=== PATIENT | male | born 1970 | race Two or more races ===

== ENCOUNTER 2016-12-25 15:55 | Emergency (ER) | payer OTHER ==
[2016-12-25 16:16] VITALS: BP 135/65; PULSE 72; RESP 18; TEMP 98.7
--- NOTE | 2016-12-25 16:30 | ED ---
General Adult HPI - General Chief complaint: Recheck/Abnormal Lab/Rx Stated complaint: Ankle Pain Time Seen by Provider: 12/25/16 16:21 Source: patient, RN notes reviewed Mode of arrival: ambulatory Limitations: no limitations - History of Present Illness Initial comments: Patient is a 46-year-old male who presents emergency room today with chief complaint of wanting medication refill. He does admit that he has recently moved back from [place]. States he plans follow-up Dr. Ordoñez. States been on Calypso in the past for chronic ankle pain. Patient states that his medication over the last month. He states he tried anti-inflammatories and also prescription Tylenol with no relief the symptoms. Patient states he is trying to get back into family doctor sometime this coming month. He denies any new injuries or complaints. Patient denies any recent fever, chills, shortness of breath, chest pain, back pain, abdominal pain, nausea or vomiting, numbness or tingling, dysuria or hematuria, constipation or diarrhea, headaches or visual changes, or any other complaints. - Related Data Previous Rx's Medication Instructions Recorded Hydrocodone/Acetaminophen [Cal[place]so 1 each PO Q6HR PRN #20 tab 12/25/16 5-325] Allergies Allergy/AdvReac Type Severity Reaction Status Date / Time No Known Allergies Allergy Verified 12/25/16 16:15 Review of Systems ROS Statement: Those systems with pertinent positive or pertinent negative responses have been documented in the HPI. ROS Other: All systems not noted in ROS Statement are negative. Past Medical History Past Medical History: Hyperlipidemia Additional Past Medical History / Comment(s): chronic ankle pain History of Any Multi-Drug Resistant Organisms: None Reported Past Surgical History: Orthopedic Surgery Past Psychological History: Depression Smoking Status: Current every day smoker Past Alcohol Use History: Rare Past Drug Use History: None Reported General Exam - General Exam Comments Initial Comments: General: The patient is awake and alert, in no distress, and does not appear acutely ill. Neck: The neck is supple, there is no tenderness or JVD. Cardiovascular: There is a regular rate and rhythm. No murmur, rub or gallop is appreciated. Respiratory: Lungs are clear to auscultation, respirations are non-labored, breath sounds are equal. No wheezes, stridor, rales, or rhonchi. Musculoskeletal: Normal appearance. Full range motion. Sensation intact. Pulses equal bilaterally 2+. Neurological: A&O x 3. CN II-XII intact, There are no obvious motor or sensory deficits. Coordination appears grossly intact. Speech is normal. Skin: Skin is warm and dry and no rashes or lesions are noted. Psychiatric: Normal mood and affect. Limitations: no limitations Course Vital Signs 12/25/16 16:12 Temperature 98.7 F Pulse Rate 72 Respiratory 18 Rate Blood Pressure 135/65 O2 Sat by Pulse 96 Oximetry Medical Decision Making - Medical Decision Making Visual be given short prescription for Calypso. Advised follow-up family doctor. Disposition Clinical Impression: Chronic pain Disposition: HOME SELF-CARE Condition: Good Instructions: Chronic Pain (ED) Additional Instructions: Please use medication as discussed. Please follow-up with family doctor in the next 2 days of symptoms have not improved. Please return to emergency room if the symptoms increase or worsen or for any other concerns. Prescriptions: Hydrocodone/Acetaminophen [Calypso 5-325] 1 each PO Q6HR PRN #20 tab PRN Reason: Pain Referrals: None,Stated [Primary Care Provider] - 1-2 days Gaston Ordoñez MD [STAFF PHYSICIAN] - 1-2 days Time of Disposition: 16:29
== END 2016-12-25 16:39 | disposition home or self-care (01) ==
LOC: EC 15:55
DX: G89.29 Other chronic pain (principal); M25.572 Pain in left ankle and joints of left foot; M25.571 Pain in right ankle and joints of right foot; F17.200 Nicotine dependence, unspecified, uncomplicated
CPT/HCPCS: 99283

== ENCOUNTER → 2018-12-07 | Outpatient (CLI) | payer SELFPAY | END | disposition home or self-care (01) | LOC: LABWHC1 14:13 | PROVIDERS: ATTEND Pathology Anatomic Pathology & Clinical Pathology | DX: Z53.9 Procedure and treatment not carried out, unspecified reason (principal) ==

== ENCOUNTER → 2020-09-25 | Outpatient (CLI) | payer OTHER | END | disposition home or self-care (01) | LOC: LABWHC1 10:22 | PROVIDERS: ATTEND Family Medicine | DX: Z03.818 Encounter for observation for suspected exposure to other biological agents ruled out (principal) | CPT/HCPCS: U0003; C9803 ==

== ENCOUNTER → 2023-05-18 | Outpatient (CLI) | payer OTHER ==
--- NOTE | 2023-05-19 11:59 | MR ---
EXAMINATION TYPE: MR cervical spine wo con DATE OF EXAM: 05/18/2023 INDICATION: Patient age: Male; 52 years old; Reason for study: M54.2 NECK PAIN; PHH. Neck pain that radiates down both arms to fingers. COMPARISON: Radiograph 04/21/2023, 08/14/2011 CT TECHNIQUE: Multi planar, multi sequence imaging was performed utilizing: T1-weighted, T2-weighted, an d turbo inversion recovery imaging of the cervical spine. IV Contrast: None FINDINGS: Alignment: The cervical vertebral bodies have preserved heights. Alignment is within normal limits gi darrian patient positioning. Bones: Bone signal is within normal limits. No abnormal bone marrow edema on inversion recovery seque nces. Mild degeneration changes worse at C5-C6 with osteophyte formation and disc space narrowing. Cord: The spinal cord is unremarkable with regards to their signal intensity and morphology. Discs: Multilevel disc desiccation is present. C2-C3: No significant disc pathology. The spinal canal is patent. Large uncovertebral facet joint ar thropathy with mild to moderate left and no significant right neural foraminal stenosis. C3-C4: A disc osteophyte complex is present with mild spinal canal stenosis. Bilateral facet and unc overtebral joint arthropathy are present with moderate bilateral neural foraminal stenosis. C4-C5: A disc osteophyte complex is present with central protrusion displaces the anterior spinal cor d slightly. Mild spinal canal stenosis. Bilateral facet and uncovertebral joint arthropathy are pres ent with moderate to severe right and mild left neural foraminal stenosis. C5-C6: A disc osteophyte complex is present with mild spinal canal stenosis. Bilateral facet and unc overtebral joint arthropathy are present with moderate to severe left and mild to moderate right neur al foraminal stenosis. C6-C7: A disc osteophyte complex is present with mild spinal canal stenosis. Bilateral facet and unc overtebral joint arthropathy are present with mild to moderate bilateral neural foraminal stenosis. C7-T1: A disc osteophyte complex with central protrusion with with mild spinal canal stenosis. No ne ural foraminal stenosis. Other: None. IMPRESSION: 1. C4-C5 Central disc osteophyte complex with possible protrusion which impresses upon the spinal co rd. Cord signal is felt to be maintained. 2. C7-T1 Central herniation with mild spinal canal stenosis. The neural foramen are patent. 3. Degeneration changes with neural foraminal stenosis worse at right C4-C5 with moderate to severe and left C5-C6 with moderate to severe neural foraminal stenosis.
== END | disposition home or self-care (01) ==
LOC: RADMRIMAIN 14:34
PROVIDERS: ATTEND Nurse Practitioner Family
DX: M47.22 Other spondylosis with radiculopathy, cervical region (principal); M25.78 Osteophyte, vertebrae; M99.71 Connective tissue and disc stenosis of intervertebral foramina of cervical region
CPT/HCPCS: 72141

== ENCOUNTER 2023-07-30 18:59 | Emergency (ER) | payer OTHER ==
[2023-07-30 19:21] VITALS: TEMP 97.6
--- NOTE | 2023-07-30 19:56 | ED ---
General Adult HPI - General Chief complaint: ENT Stated complaint: left eye issues Time Seen by Provider: 07/30/23 19:29 Source: patient Mode of arrival: ambulatory Limitations: no limitations - History of Present Illness Initial comments: 52-year-old male presenting with chief complaint of flash of light and blurriness to the left eye. Patient sees Dr. Moura, states that he was seen in the office today and told that tears to the retina in the left eye have gotten larger and he was informed on alarm symptoms that should prompt evaluation in the ER. He states that he had a single flash of light and now he has a blurry smokiness to the left eye. States that there is a bit of throbbing pain. No light sensitivity or discharge. States that he did have a laser procedure in the office on 07/26 to the right eye due to retinal tears, the right eye is unaffected at this time - Related Data Home Medications Medication Instructions Recorded Confirmed Ergocalciferol [Vitamin D2] 50,000 unit PO Q30D 12/25/16 12/25/16 Lipitor(Unknown) 1 tab PO DAILY 12/25/16 12/25/16 QUEtiapine [SEROquel] 25 mg PO HS 12/25/16 12/25/16 Zoloft(Unknown) 1 tab PO HS 12/25/16 12/25/16 Previous Rx's Medication Instructions Recorded Hydrocodone/Acetaminophen [[place] 1 each PO Q6HR PRN #20 tab 12/25/16 5-325] Allergies Allergy/AdvReac Type Severity Reaction Status Date / Time No Known Allergies Allergy Verified 07/30/23 19:21 Review of Systems ROS Statement: Those systems with pertinent positive or pertinent negative responses have been documented in the HPI. ROS Other: All systems not noted in ROS Statement are negative. Past Medical History Past Medical History: Hyperlipidemia Additional Past Medical History / Comment(s): chronic ankle pain History of Any Multi-Drug Resistant Organisms: None Reported Past Surgical History: Orthopedic Surgery Past Psychological History: Depression Smoking Status: Former smoker Past Alcohol Use History: Rare Past Drug Use History: None Reported General Exam Limitations: no limitations General appearance: alert, in no apparent distress Head exam: Present: atraumatic, normocephalic, normal inspection Eye exam: Present: normal appearance, PERRL, EOMI. Absent: scleral icterus, periorbital swelling Expanded Eyelids: Normal Inspection: Bilateral Pupils: Regular, Round: Bilateral, Reactive: Bilateral Sclera/Conjunctival: Normal Inspection: Bilateral Visual acuity (L) = 20/: 70 Neck exam: Present: normal inspection, full ROM Respiratory exam: Absent: respiratory distress Neurological exam: Present: alert, oriented X3, CN II-XII intact Psychiatric exam: Present: normal affect, normal mood Skin exam: Present: warm, dry, intact, normal color. Absent: rash Course Vital Signs 07/30/23 07/30/23 19:18 21:48 Temperature 97.6 F Pulse Rate 100 92 Respiratory 20 18 Rate Blood Pressure 156/84 138/79 O2 Sat by Pulse 98 96 Oximetry Medical Decision Making - Medical Decision Making Was pt. sent in by a medical professional or institution (, PA, APPLE PICKING SUPERVISOR, urgent care, hospital, or half-way...) When possible be specific @ -No Did you speak to anyone other than the patient for history (EMS, parent, family, police, friend...)? What history was obtained from this source @ -No Did you review nursing and triage notes (agree or disagree)? Why? @ -I reviewed and agree with nursing and triage notes Were old charts reviewed (outside hosp., previous admission, EMS record, old EKG, old radiological studies, urgent care reports/EKG's, half-way records)? Report findings @ -No old charts were reviewed Differential Diagnosis (chest pain, altered mental status, abdominal pain women, abdominal pain men, vaginal bleeding, weakness, fever, dyspnea, syncope, headache, dizziness, GI bleed, back pain, seizure, CVA, palpatations, mental health, musculoskeletal)? @ -Differential includes retinal detachment, glaucoma, foreign body, this is not an all inclusive list EKG interpreted by me (3pts min.). @ -As above X-rays interpreted by me (1pt min.). @ -None done CT interpreted by me (1pt min.). @ -None done U/S interpreted by me (1pt. min.). @ -None done What testing was considered but not performed or refused? (CT, X-rays, U/S, labs)? Why? @ -None What meds were considered but not given or refused? Why? @ -None Did you discuss the management of the patient with other professionals (professionals i.e. , PA, APPLE PICKING SUPERVISOR, lab, RT, psych nurse, social services specialist, digital campaign manager, teacher, commercial loan officer, skilled nursing case manager)? Give summary @ -Spoke with die sinker on-call through [facility] who accepted transfer to [facility]. Accepting ER physician is Dr. Hernandez. Was smoking cessation discussed for >3mins.? @ -No Was critical care preformed (if so, how long)? @ -No Were there social determinants of health that impacted care today? How? (Homelessness, low income, unemployed, alcoholism, drug addiction, transportation, low edu. Level, literacy, decrease access to med. care, fpc, rehab)? @ -No Was there de-escalation of care discussed even if they declined (Discuss DNR or withdrawal of care, Hospice)? DNR status @ -No What co-morbidities impacted this encounter? (DM, HTN, Smoking, COPD, CAD, Cancer, CVA, ARF, Chemo, Hep., AIDS, mental health diagnosis, sleep apnea, morbid obesity)? @ -None Was patient admitted / discharged? Hospital course, mention meds given and route, prescriptions, significant lab abnormalities, going to OR and other pertinent info. @ -52-year-old male presenting with chief complaint of left sided flashes of light and smoky blurry vision. Symptoms started this afternoon. States he was at his die sinker earlier told him that his retinal tears appeared larger than previous. Visual acuity is 20/70 in the left eye and 20/50 in the right eye. Pressure is 10 in the left eye. I attempted to page the patient's die sinker Dr. Moura who was unavailable. I spoke with die sinker on- call through [facility] who accepted transfer of patient. Patient is agreeable with this plan. Patient tells me that he currently has a tether and cannot leave the city of [place], explained to the patient that he needs to contact his logistics supply officer to inform them of the need for transfer, as this could be a medical emergency and delay in treatment may result in permanent vision loss. I offered the patient EMS transport. Patient states that he would prefer to drive himself, he has a family member at bedside who will be driving. I discussed this case with my attending Dr. Martínez. Undiagnosed new problem with uncertain prognosis? @ -No Drug Therapy requiring intensive monitoring for toxicity (Heparin, Nitro, Insulin, Cardizem)? @ -No Were any procedures done? @ -No Diagnosis/symptom? @ -Possible retinal detachment, flashes of light in the vision and blurry vision Acute, or Chronic, or Acute on Chronic? @ -acute Uncomplicated (without systemic symptoms) or Complicated (systemic symptoms)? @ -Complicated Side effects of treatment? @ -No Exacerbation, Progression, or Severe Exacerbation? @ -No Poses a threat to life or bodily function? How? (Chest pain, USA, DC, pneumonia, PE, COPD, DKA, ARF, appy, cholecystitis, CVA, Diverticulitis, Homicidal, Suicidal, threat to staff... and all critical care pts) @ -Threat to eyesight - Lab Data Lab Results 07/30/23 Range/Units 19:44 Influenza Type A (PCR) Not Detected (Not Detectd) Influenza Type B (PCR) Not Detected (Not Detectd) RSV (PCR) Not Detected (Not Detectd) SARS-CoV-2 (PCR) Not Detected (Not Detectd) Disposition Clinical Impression: Retinal defect Disposition: OTHER INSTITUTION NOT DEFINED Condition: Stable Referrals: Gaston Ordoñez MD [Primary Care Provider] - 1-2 days - Out of Hospital Transfer - Req. Specs Out of Hospital Transfer - Requested Specifics: Other Emergency Center ([place] [facility])
[2023-07-30 21:52] VITALS: BP 138/79; PULSE 92; RESP 18
== END 2023-07-30 21:52 | disposition other institution (70) ==
LOC: EC 18:59
DX: H35.89 Other specified retinal disorders (principal); F32.A Depression, unspecified; Z87.891 Personal history of nicotine dependence; Z79.899 Other long term (current) drug therapy; Z20.822 Contact with and (suspected) exposure to COVID-19
CPT/HCPCS: 87636; 99284

== ENCOUNTER → 2024-03-14 | Outpatient (CLI) | payer OTHER ==
--- NOTE | 2024-03-15 05:30 | MR ---
EXAMINATION TYPE: MR knee LT wo con DATE OF EXAM: 03/14/2024 COMPARISON: Outside left knee x-ray February 22, 2024 HISTORY: Left knee pain and swelling for 2 months TECHNIQUE: Multiplanar, multisequence images of the knee is performed without IV contrast. FINDINGS: MEDIAL MENISCUS: Horizontal oblique signal posterior horn appears to abut the inferior articular surf usha sagittal image 27. LATERAL MENISCUS: Anterior and posterior horns are intact without tear. CRUCIATE LIGAMENTS: The anterior and posterior cruciate ligaments are intact and unremarkable. COLLATERAL LIGAMENTS: The medial collateral ligament and lateral collateral ligament complex are inta ct and unremarkable. EXTENSOR MECHANISM: Visualized quadriceps and patellar tendons are intact. EFFUSION: Small size suprapatellar joint effusion. POPLITEAL CYST: No popliteal/bird cyst. TRICOMPARTMENT SPACES: Mild tricompartment joint space loss. No significant spurring. CARTILAGE: Tricompartment articular cartilage is preserved. BONE MARROW SIGNAL: No focal abnormal marrow signal is appreciated. OTHER: No additional significant abnormality is appreciated. IMPRESSION: 1. Subtle oblique full-thickness tear posterior horn medial meniscus. 2. Small size suprapatellar joint effusion. 3. Mild tricompartment degenerative changes are present.
== END | disposition home or self-care (01) ==
LOC: RADMRIMAIN 20:15
PROVIDERS: ATTEND Orthopaedic Surgery
DX: S83.242A Other tear of medial meniscus, current injury, left knee, initial encounter (principal); M17.12 Unilateral primary osteoarthritis, left knee

== ENCOUNTER → 2024-04-04 | Outpatient (CLI) | payer OTHER ==
--- NOTE | 2024-04-04 10:35 | US ---
EXAMINATION TYPE: US liver DATE OF EXAM: 04/04/2024 COMPARISON: NONE CLINICAL INDICATION: Male, 53 years old with history of R74.8 ELEVATE LIVER ENZYMES; Elevated liver e nzymes, nausea TECHNIQUE: Multiple sonographic images of the right upper quadrant are obtained. FINDINGS: EXAM MEASUREMENTS: Liver Length: 17.9 cm Gallbladder Wall: 0.3 cm Right Kidney: 10.3 x 4.9 x 4.9 cm METALWORKING SPECIALIST NOTES:Technical limitations due to body habitus and large amount of overlying bowel gas Pancreas: Obscured by bowel gas Liver: attenuating, difficult to penetrate, heterogeneous no suspicious masses dilated ducts or cys tic structures. Gallbladder: no evidence of stones Evidence for sonographic Cervantes's sign: no CBD: Obscured by overlying bowel gas Right Kidney: no evidence of hydronephrosis IMPRESSION: 1. No evidence for acute process. 2. Hepatic steatosis.
== END | disposition home or self-care (01) ==
LOC: RADUSWWP 07:34
PROVIDERS: ATTEND Family Medicine
DX: K76.0 Fatty (change of) liver, not elsewhere classified (principal); R74.8 Abnormal levels of other serum enzymes; R11.0 Nausea
CPT/HCPCS: 76705

== ENCOUNTER → 2024-04-19 | Outpatient (CLI) | payer OTHER ==
[2024-04-19 15:09] LABS: Basophils # (A) 0.06 X 10*3/uL (0.00-0.10); Eosinophils % (A) 4.9 %; HCT 48.5 % (39.6-50.0); HGB 16.5 g/dL (13.0-17.0); Lymphocytes # (A) 2.84 X 10*3/uL (0.90-5.00); Lymphocytes % (A) 46.6 %; MCH 29.8 pg (27.0-32.0); MCV 87.5 FL (80.0-97.0); Mean Platelet Volume 9.6 FL (9.5-12.2); Monocytes # (A) 0.63 X 10*3/uL (0.20-1.00); Monocytes % (A) 10.3 %; NRBC Per 100 WBC 0 X 10*3/uL (0.00-0.01); Neutrophils # (A) 2.24 X 10*3/uL (1.80-7.70); Neutrophils % (A) 36.9 %; Platelet Count 248 X 10*3/uL (140-440); RBC 5.54 X 10*6/uL (4.40-5.60); RDW 13.2 % (11.5-14.5); WBC 6.09 X 10*3/uL (4.50-10.00)
[2024-04-19 21:41] LABS: Anion Gap 13.4 mmol/L (4.00-12.00); Carbon Dioxide 22.6 mmol/L (21.6-31.8); Potassium 4.2 mmol/L (3.5-5.5)
== END | disposition home or self-care (01) ==
LOC: LABPAT 11:42
PROVIDERS: ATTEND Orthopaedic Surgery
DX: Z01.818 Encounter for other preprocedural examination (principal); M23.92 Unspecified internal derangement of left knee
CPT/HCPCS: 36415; 80051; 85025; 93005

== ENCOUNTER → 2024-12-05 | Outpatient (CLI) | payer OTHER ==
--- NOTE | 2024-12-05 10:41 | CA ---
Exercise Stress Test Report Name: Thony Harper Exam Date: 12/05/2024 09:16 Exam Location: [facility] Stress Ht (in): 68 Wt (lb): 260 BSA: 2.29 Ordering Phys: Gaston Ordoñez MD Referring Phys: CLAUDINE Technologist: Edinson Cutler Age: 54 Gender: M : 1970 Procedure CPT: Indications: R07.9 Chest pain on exertion ICD-10 Codes: Patient History: Medications: ALBUTEROL, ATORVASTATIN, NORCO Meds past 24 hrs: Pretest Chest Pain: STRESS TEST Dimitris Protocol Exercise Duration (min:sec): 07:[address] Depressions (mm): Angina Score: Holloway Score: Resting HR (bpm): 82 Peak HR (bpm): 146 Resting BP (mmHg): 124 / 79 Peak BP (mmHg): 177 / 72 MPHR: 167 Target HR: 142 % MPHR: 87 METS: 8.6 Total Dose: Peak Dose: Atropine: Double Product: 17783 BP Response: Stress Termination: TARGET HR REACHED/MAX EXERTION Stress Symptoms: DIFFICULTY IN BREATHING Stress Summary: Patient exercised on a Dimitris protocol for 7 minutes achieving 8.6 METS. Patient was able to achieve 87% of age-predicted maximum heart rate. Normal blood pressure response.. Patient denies any chest pain chest pressure. He did experience shortness of breath for which the exercise protocol was terminated. ECG ANALYSIS Resting ECG: Normal sinus rhythm Stress ECG: No significant ST-T wave changes concerning for ischemia CONCLUSIONS Nonischemic ECG response to treadmill exercise Normal blood pressure and clinical response to treadmill exercise Fair exercise tolerance for age achieving 8.6 METS. Overall normal treadmill stress test Dr Cyrus Chandler (Electronically Signed) Final Date: 05 December 2024 10:40
== END | disposition home or self-care (01) ==
LOC: RADNMMAIN 08:56
PROVIDERS: ATTEND Family Medicine
DX: R07.9 Chest pain, unspecified (principal)
CPT/HCPCS: 93017

== ENCOUNTER → 2024-12-15 | Outpatient (CLI) | payer OTHER ==
--- NOTE | 2024-12-15 17:41 | CA ---
Transthoracic Echo Report Name: Thony Harper Age: 54 Gender: M : 1970 Exam Date: 12/15/2024 14:23 Exam Location: [facility] Echo Ht (in): 68 Wt (lb): 260 Ordering Physician: Gaston Ordoñez MD Attending/Referring Phys: Gaston Ordoñez MD Mathematical Sciences Professor Yola Maxwell, [facility] Procedure CPT: Indications: R07.9 CHEST PAIN Cardiac Hx: Technical Quality: Fair Contrast 1: Total Dose (mL): Contrast 2: Total Dose (mL): MEASUREMENTS (Male / Female) Normal Values 2D ECHO LV Diastolic Diameter PLAX 4.2 cm 4.2 - 5.9 / 3.9 - 5.3 cm LV Systolic Diameter PLAX 2.7 cm IVS Diastolic Thickness 1.0 cm 0.6 - 1.0 / 0.6 - 0.9 cm LVPW Diastolic Thickness 0.8 cm 0.6 - 1.0 / 0.6 - 0.9 cm LV Relative Wall Thickness 0.4 LVOT Diameter 2.2 cm LV Diastolic Volume MOD BP 132.1 cm??? 67 - 155 / 56 - 104 cm??? LV Systolic Volume MOD BP 53.3 cm??? 22 - 58 / 19 - 49 cm??? LV Ejection Fraction MOD BP 59.7 % >= 55 % LV Cardiac Index MOD BP 2948.4 cm???/min???m??? LV Diastolic Volume MOD 4C 117.9 cm??? LV Systolic Volume MOD 4C 52.3 cm??? LV Ejection Fraction MOD 4C 55.7 % LV Cardiac Index MOD 4C 2457.4 cm???/min???m??? LV Diastolic Length 4C 9.1 cm LV Systolic Length 4C 7.1 cm LV Diastolic Volume MOD 2C 142.6 cm??? LV Systolic Volume MOD 2C 53.5 cm??? LV Ejection Fraction MOD 2C 62.4 % LV Cardiac Index MOD 2C 3331.1 cm???/min???m??? LV Diastolic Length 2C 9.5 cm LV Systolic Length 2C 7.3 cm LA Volume 54.0 cm??? 18 - 58 / 22 - 52 cm??? LA Volume Index 22.2 cm???/m??? 16 - 28 cm???/m??? DOPPLER AV Peak Velocity 155.0 cm/s AV Peak Gradient 9.6 mmHg AV Mean Velocity 112.2 cm/s AV Mean Gradient 5.4 mmHg AV Velocity Time Integral 28.2 cm LVOT Peak Velocity 124.9 cm/s LVOT Peak Gradient 6.2 mmHg LVOT Velocity Time Integral 24.3 cm LVOT Stroke Volume 95.1 cm??? LVOT Stroke Volume Index 41.6 ml/m??? LVOT Cardiac Index 3559.9 cm???/min???m??? AV Area Cont Eq vti 3.4 cm??? AV Area Cont Eq pk 3.2 cm??? MV Area PHT 4.5 cm??? Mitral E Point Velocity 67.2 cm/s Mitral A Point Velocity 88.9 cm/s Mitral E to A Ratio 0.8 MV Deceleration Time 167.5 ms PV Peak Velocity 157.3 cm/s PV Peak Gradient 9.9 mmHg FINDINGS Left Ventricle Left ventricular ejection fraction is estimated at 55-60 %. Left ventricular cavity size normal. Left ventricular wall thickness normal. No obvious regional wall motion abnormalities. Right Ventricle Normal right ventricular size and function. Unable to estimate the right ventricular systolic pressure. Right Atrium Normal right atrial size. Left Atrium Normal left atrial size. Mitral Valve Structurally normal mitral valve. No mitral stenosis, regurgitation or prolapse. Aortic Valve Trileaflet aortic valve. No aortic valve stenosis or regurgitation. Tricuspid Valve Structurally normal tricuspid valve. No tricuspid stenosis. Trace tricuspid regurgitation. Pulmonic Valve Pulmonic valve not well visualized. No pulmonic stenosis. No pulmonic regurgitation. Increased velocities. Pericardium No pericardial effusion. Aorta Aortic annulus normal. CONCLUSIONS 1. Normal left ventricular size and systolic function 2. Trace tricuspid regurgitation Previewed by: Dr. Chepe Huffman MD (Electronically Signed) Final Date: 15 December 2024 17:39
== END | disposition home or self-care (01) ==
LOC: RADECHMAIN 14:14
PROVIDERS: ATTEND Family Medicine
DX: R07.9 Chest pain, unspecified (principal)
CPT/HCPCS: 93306